=== PATIENT | male | born 1995 | race African-American/Black ===

== ENCOUNTER 2022-05-28 10:23 | Emergency (ER) | payer OTHER, SELFPAY ==
[2022-05-28 10:25] VITALS: BP 114/70; PULSE 64; RESP 14; TEMP 36.3; O2SAT 100; BMI 23.8
--- NOTE | 2022-05-28 10:44 | EX.ED.GUMALE ---
HPI <MARIANN López - Last Filed: 05/28/22 15:08> History of Present Illness Chief Complaint: Male Pain/Injury Narrative Narrative: Patient presenting today with intermittent right-sided testicular pressure that started last week. He states he wants to be tested for STDs as he is sexually active. He denies any known exposure to any STDs. He denies any fever, chills, rashes, urinary symptoms, penile discharge, abdominal pain, nausea, and vomiting. PFSH <MARIANN López - Last Filed: 05/28/22 15:08> PFSH Medical History no medical history Allergy/AdvReac Type Severity Reaction Status Date / Time No Known Allergies Allergy Verified 05/28/22 10:28 Family History no significant family his Surgical History no surgical history Social History Smoking Status: Current some day smoker tobacco type: cigarettes and e-cigarettes ROS <MARIANN López - Last Filed: 05/28/22 15:08> ROS ED Constitutional Constitutional ED: Denies chills, fever(s) or sweats Eyes Eyes: Denies blurry vision or diplopia Cardiovascular Cardiovascular: Denies chest pain or palpitations Respiratory/Chest Respiratory/Chest: Denies cough or dyspnea Gastrointestinal Gastrointestinal: Denies abdominal pain, nausea or vomiting Genitourinary Genitourinary ED: Denies dysuria, hematuria or urinary urgency Musculoskeletal Musculoskeletal: Denies arthralgias, back pain, myalgias or neck pain Integumentary Denies abscess, Abrasions or rash Neurologic Neurologic: Denies confusion, dizziness or paresthesias Psychiatric Psychiatric: Denies anxiety, depression, suicidal ideation or suicidal thoughts EXAM <MARIANN López - Last Filed: 05/28/22 15:08> Physical Exam Const Vital Signs: 05/28/22 10:25 Temperature 97.3 F L Temperature Source Temporal Pulse Rate 64 Respiratory Rate 14 Blood Pressure 114/70 Blood Pressure Mean 84 Pulse Ox 100 Oxygen Delivery Method Room Air Positive well nourished, well developed and no apparent distress General Appearance ED: well developed HEENT Reports normocephalic and head/scalp atraumatic Mouth ED: Yes moist mucous membranes normal Eyes PERRL and EOMs intact bilaterally Neck full ROM and supple Chest Wall inspection of chest normal Resp normal respiratory effort and clear to auscultation bilaterally Cardio regular rate and regular rhythm GI soft to palpation, non-tender, non-distended and no masses Back/Spine normal ROM and normal to inspection Extremity normal to inspection and full ROM Neuro oriented x3, CN's II-XII intact bilaterally, moves all extremities, no focal motor deficits and no sensory deficits noted Sensorium / Orientation: awake and alert Psych mental status grossly normal and thought process normal Skin no rashes or lesions noted and no wounds <Dr. Riley Hull, - Last Filed: 05/28/22 16:00> Physical Exam Const Vital Signs: 05/28/22 10:25 Temperature 97.3 F L Temperature Source Temporal Pulse Rate 64 Respiratory Rate 14 Blood Pressure 114/70 Blood Pressure Mean 84 Pulse Ox 100 Oxygen Delivery Method Room Air MDM <MARIANN López - Last Filed: 05/28/22 15:08> [facility] Narrative Medical decision making narrative: Patient presenting today with intermittent right testicular pressure that started late last week. He denies testicular pain. He is denying urinary symptoms, penile discharge. No known exposures to any STDs but is sexually active. There is no abnormality to patient's scrotum or penis. Testicular ultrasound will be obtained to rule out testicular torsion, epididymitis, and other abnormality. Urine chlamydia and gonorrhea are negative. Ultrasound for any testicular abnormality with normal blood flow. Patient discharged home in stable condition and is comfortable with plan. He has been given a PCP to follow-up with. Lab Data Labs: Laboratory Results - last 24 hr 05/28/22 11:20 Chlam trachomat DNA PCR Negative N.gonorrhoeae DNA (PCR) Negative Radiography Diagnostic Testing: Clinical Impression(s) from Imaging Studies Testicular Ultrasound 05/28/22 10:46 IMPRESSION: Normal bilateral testicles. No testicular mass. Normal blood flow. Electronically Signed: Greg Mi MD at 12:15 EDT , <Dr. Riley Hull, - Last Filed: 05/28/22 16:00> [facility] Narrative Medical decision making narrative: Patient presenting today with intermittent right testicular pressure that started late last week. He denies testicular pain. He is denying urinary symptoms, penile discharge. No known exposures to any STDs but is sexually active. There is no abnormality to patient's scrotum or penis. Testicular ultrasound will be obtained to rule out testicular torsion, epididymitis, and other abnormality. Urine chlamydia and gonorrhea are negative. Ultrasound for any testicular abnormality with normal blood flow. Patient discharged home in stable condition and is comfortable with plan. He has been given a PCP to follow-up with. This patient was seen with a PA/VIRTUAL CLASSROOM MANAGER Individually assessed they patient including history and physical. I have reviewed everything on the chart that is available and agree with the documentation provided by the PA/VIRTUAL CLASSROOM MANAGER including discussion about the assessment, treatment plan, discussion, and return precautions. Well-appearing 27-year-old male with intermittent testicular pain. He denies any exposure to STDs but states he is sexually active. He states he wants to be tested for STDs but is not having any symptoms of STD. Testicular exam otherwise normal. Ultrasound of the testicles is also normal with good blood flow. I do not believe the patient needs to be empirically treated and he is amenable to following up for his results. Lab Data Labs: Laboratory Results - last 24 hr 05/28/22 11:20 Chlam trachomat DNA PCR Negative N.gonorrhoeae DNA (PCR) Negative Radiography Diagnostic Testing: Clinical Impression(s) from Imaging Studies Testicular Ultrasound 05/28/22 10:46 IMPRESSION: Normal bilateral testicles. No testicular mass. Normal blood flow. Electronically Signed: Greg Mi MD at 12:15 EDT Reading Location ID and State: [address] [place] [address] , Service support , Discharge Plan Triage Chief Complaint: Male Pain/Injury ED Midlevel Provider: Leah Goldberg ED Provider: Riley Hull Dx/Rx/DC Orders Clinical Impression: Testicular pain, right Instructions: ED Testicular Pain, Unclear Cause Primary Care Provider: Care Physician,No Primary Referrals: Gayla Cancino MD [Med Staff - [employer]] - 5-7 Days Care Physician,No Primary [Primary Care Provider] - Activity Restrictions/Additional Instructions: I have given you a referral for a primary care provider. Please follow-up with them for preventative care. Return for any worsening symptoms. Disposition Disposition: Home, Self Care Discharge Date/Time: 05/28/22 13:09
--- NOTE | 2022-05-28 10:46 | US_ITS ---
STUDY: SCROTUM ULTRASOUND REASON FOR EXAM: Male, 27 years old. Testicular pain/ pressure TECHNIQUE: Ultrasound evaluation of the scrotum was performed with color Doppler and static chau-scale imaging. COMPARISON: None. FINDINGS: RIGHT TESTICLE INTRATESTICULAR: There is a normal size of the right testicle. The right testicle measures 4.0 x 3.0 x 1.8 cm. There is a homogenous echotexture. There is normal arterial and normal venous vascularity with Doppler color and normal waveforms. There is no demonstrated right testicular mass or cyst. EXTRATESTICULAR: The epididymis is normal in size. The epididymis head measures 1.0 cm. There is normal vascularity of the epididymis. There is no demonstrated epididymal cystic structure. There is no demonstrated hydrocele. There is no demonstrated varicocele. There is no demonstrated extratesticular mass or cyst. LEFT TESTICLE INTRATESTICULAR: There is a normal size of the left testicle. The left testicle measures 4.5 x 2.6 x 1.7 cm. There is a homogenous echotexture. There is normal arterial and normal venous vascularity with Doppler color and normal waveforms. There is no demonstrated left testicular mass or cyst. EXTRATESTICULAR: The epididymis is normal in size. The epididymis head measures 0.9 cm. There is normal vascularity of the epididymis. There is no demonstrated epididymal cystic structure. There is no demonstrated hydrocele. There is no demonstrated varicocele. There is no demonstrated extratesticular mass or cyst. US/Testicular with Arterial Flow IMPRESSION: Normal bilateral testicles. No testicular mass. Normal blood flow. Electronically Signed: Greg Mi MD at 12:15 EDT ,
[2022-05-28 13:19] LABS: Chlamydia Trachomatis by PCR Negative (Negative); Neisserai gonorrhoeae by PCR Negative (Negative); Probe Check PASS; Sample Adequacy Control PASS; Specimen Processing Control PASS
== END 2022-05-28 13:09 | disposition home or self-care (01) ==
PROVIDERS: Physician Assistant; Emergency Provider Student in an Organized Health Care Education/Training Program; Visit Provider Student in an Organized Health Care Education/Training Program
DX: N50.811 Right testicular pain (principal); F17.210 Nicotine dependence, cigarettes, uncomplicated
CPT/HCPCS: 76870; 87491; 87591; 93976; 99282